=== PATIENT | male | born 1990 | race Two or more races ===

== ENCOUNTER 2022-05-13 14:51 | Emergency (ER) | payer MEDICAID ==
[~2022-05-13] VITALS: Ht 182.9 cm; Wt 67.3 kg
[2022-05-13] MEDS ORDERED: LORazepam 0.5 MG TAB PO ONE (15:15)
[2022-05-13 15:27] VITALS: BP 119/75
[2022-05-13 15:48] LABS: Basophils # (auto) 0.2 10 ^3/uL (0-0.2); Basophils % (auto) 2.7 % (0.0-2.0); Eosinophils # (auto) 0.2 10 ^3/uL (0-0.8); Eosinophils % (auto) 3.2 % (0.0-7.0); Hemoglobin 16.3 g/dL (13.5-17.5); Lymphocytes % (auto) 30.4 % (10.0-50.0); Mean Corpuscular Hemoglobin 30.9 pg (28.0-32.0); Mean Corpuscular Hgb Conc. 34.7 g/dL (32.0-36.0); Mean Corpuscular Volume 89.1 fL (80.0-100.0); Monocytes # (auto) 0.5 10 ^3/uL (0-1.3); Monocytes % (auto) 8.1 % (0.0-12.0); Neutrophils # (auto) 3.7 10 ^3/uL (1.6-8.6); Neutrophils % (auto) 55.6 % (37.0-80.0); Nucleated Red Blood Cells % 0.2 %; Red Blood Cells 5.27 10^6/uL (4.5-5.90); Red Cell Distribution Width 13.1 % (11.8-14.3); White Blood Cell 6.7 10^3/uL (4.4-10.8)
[2022-05-13 16:13] LABS: Albumin 4.6 g/dL (3.4-5.0); BUN/Creatinine Ratio 11.3; Calcium 9.5 mg/dL (8.5-10.1); Potassium 3.6 mmol/L (3.5-5.1)
[2022-05-13 16:44] LABS: Urine Blood Negative /uL (Negative); Urine Specific Gravity 1.026 (1.001-1.035)
[2022-05-13] MEDS ORDERED: LORA0.5T20 PO (17:02)
== END 2022-05-13 17:01 | disposition home or self-care (01) ==
LOC: ER 14:51
DX: F41.9 Anxiety disorder, unspecified (principal); R06.02 Shortness of breath; R07.89 Other chest pain
CPT/HCPCS: 36415; 71045; 80053; 81003; 83880; 84484; 85025; 85379; 93005